=== PATIENT | female | born 1970 | race Hispanic/Latino ===

== ENCOUNTER → 2023-03-16 | Emergency (ER) | payer BC ==
[~2023-03-16] MED LIST: DIPHENHYDRAMINE 50 MG/ML VIAL ONE; KETOROLAC 30 MG/ML INJ ONE; METOCLOPRAMIDE 10 MG/2mL INJ ONE; NA CHLORIDE 0.9% 1,000 ML ONE
[2023-03-16 16:28] LABS: Absolute Lymphocytes (CBC) 1.2 K/uL (0.7-4.9); Hematocrit 42.8 % (36.0-45.0); Lymphocytes % 16.8 % (15.3-44.8); MCV 91.3 fL (80-100); MPV 7.7 fL (7.6-11.3); Platelets 340 thou/uL (152-406); RBC Red Blood Cell Count 4.69 M/uL (3.86-4.86)
[2023-03-16 16:51] LABS: ALT/SGPT 32 U/L (13-56); AST/SGOT 17 U/L (15-37); Albumin 3.8 g/dL (3.4-5.0); Alkaline Phosphatase 103 U/L (45-117); BUN Blood Urea Nitrogen 12 mg/dL (7-18); Bicarbonate 26 mEq/L (21-32); Bilirubin Total 0.4 mg/dL (0.2-1.0); Glomerular Filtration Rate 100 ml/min (=/>90); Glucose Level 108 mg/dL (74-106); Potassium 3.6 mEq/L (3.5-5.1); Protein, Total 7.6 g/dL (6.4-8.2); Sodium Level 138 mEq/L (136-145); Troponin High Sensitivity 3.6 pg/mL (<58.9)
--- NOTE | 2023-03-16 16:52 | RAD REPORT ---
EXAM DESCRIPTION: CT - Head Brain Wo Cont - 03/16/2023 4:30 pm CLINICAL HISTORY: Dizziness;Headache Headache, drowsiness COMPARISON: No comparisons TECHNIQUE: All CT scans are performed using dose optimization technique as appropriate and may inclu de automated exposure control or mA/KV adjustment according to patient size. FINDINGS: No intracranial hemorrhage, hydrocephalus or extra-axial fluid collection.No areas of brai n edema or evidence of midline shift. The paranasal sinuses and mastoids are clear. The calvarium is intact. IMPRESSION: No acute intracranial abnormality.
[2023-03-16 16:54] LABS: Bilirubin Direct < 0.1 mg/dL (0-0.2); Bilirubin Indirect, Calculated ND mg/dL (0.2-0.8)
--- NOTE | 2023-03-16 17:20 | EDPHYS ---
Physician Documentation [facility] Name: Yarelis Keyes Age: 52 yrs Sex: Female : 1970 Arrival Date: 03/16/2023 Time: 15:37 Bed 9 Private MD: ED Physician Jovi Sanchez HPI: 03/16 16:13 This 52 yrs old Female presents to ER via Ambulatory with complaints of sb4 Dizziness, Nausea. 16:13 The patient presents with dizziness, sense of spinning. Onset: The symptoms/episode sb4 began/occurred this morning. Context:. Modifying factors: The symptoms are alleviated by holding head still, the symptoms are aggravated by movement of head, standing up, changing position. Associated signs and symptoms: Pertinent positives: headache, nausea. patient with history of migraines on aimovig monthly with sumatriptan as rescue medication sees dr. khoury. states she woke up this morning feeling dizzy, which is not normal for her. she called dr. khoury who prescribed her meclizine. she states she was able to take a nap but woke up with the same symptoms. she also endorses headache and nausea. states the dizziness is like she is drunk. she has outpatient brain MRI scheduled in 1 week. 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 - Social history:: Smoking status: Patient denies any tobacco usage or history of. ROS: 16:13 Constitutional: Negative for fever, chills, and weight loss, sb4 16:13 Abdomen/GI: Positive for nausea, 16:13 Neuro: Positive for dizziness, headache, 16:13 All other systems are negative, Exam: 16:13 Constitutional: This is a well developed, well nourished patient who is awake, alert, sb4 and in no acute distress. Head/Face: Normocephalic, atraumatic. Eyes: Extra-ocular motions intact. Periorbital areas with no swelling, redness, or edema. ENT: Mucous membranes moist. Cardiovascular: Regular rate and rhythm with a normal S1 and S2. Respiratory: Lungs have equal breath sounds bilaterally, clear to auscultation and percussion. No rales, rhonchi or wheezes noted. No increased work of breathing, no retractions or nasal flaring. Abdomen/GI: Soft, non-tender, no distension. Skin: Warm, dry with normal turgor. Normal color with no rashes, no lesions, and no evidence of cellulitis. MS/ Extremity: Pulses equal, no cyanosis. Neurovascular intact. Full, normal range of motion. Neuro: Awake and alert, GCS 15, oriented to person, place, time, and situation. Motor strength 5/5 in all extremities. Sensory grossly intact. Vital Signs: 15:44 BP 133 / 94; Pulse 83; Resp 16; Temp 98.7(TE); Pulse Ox 100% on R/A; Weight 80.29 kg; hb Height 5 ft. 2 in. ; Pain 6/10; 16:30 BP 119 / 77; Pulse 88; Resp 16; Pulse Ox 99% on R/A; tl4 17:00 BP 116 / 72; Pulse 64; Resp 18; Pulse Ox 99% on R/A; tl4 17:30 BP 114 / 83; Pulse 58; Resp 17; Pulse Ox 100% on R/A; tl4 18:20 BP 102 / 71; Pulse 73; Resp 16; Pulse Ox 100% on R/A; tl4 15:44 Body Mass Index 32.37 (80.29 kg, 157.48 cm) hb 15:44 Pain Scale: Adult hb MDM: 15:45 Patient medically screened. sb4 16:13 Differential diagnosis: cardiac arrhythmia, CVA, idiopathic dizziness, near-syncope, sb4 vertigo, brain mass, complex migraine. 17:19 Data reviewed: vital signs, nurses notes, lab test result(s), EKG, radiologic studies, sb4 and as a result, I will discharge patient. Consideration of Admission/Observation Escalation of care including admission/observation considered. Counseling: I had a detailed discussion with the patient and/or guardian regarding the historical points, exam findings, and any diagnostic results supporting the discharge/admit diagnosis, lab results, radiology results, the need for outpatient follow up, a neurologist, to return to the emergency department if symptoms worsen or persist or if there are any questions or concerns that arise at home. 03/16 15:53 Order name: Basic Metabolic Panel; Complete Time: 16:57 sb4 03/16 15:53 Order name: CBC with Diff; Complete Time: 16:30 sb4 03/16 15:53 Order name: Hepatic Function; Complete Time: 16:57 sb4 03/16 15:53 Order name: Magnesium; Complete Time: 16:57 sb4 03/16 15:53 Order name: Troponin High Sensitivity; Complete Time: 16:57 sb4 03/16 15:53 Order name: CT Head Brain wo Cont; Complete Time: 16:57 sb4 03/16 15:53 Order name: EKG; Complete Time: 15:54 sb4 03/16 15:53 Order name: Cardiac monitoring; Complete Time: 16:22 sb4 03/16 15:53 Order name: EKG - Nurse/Tech; Complete Time: 16:48 sb4 03/16 15:53 Order name: IV Saline Lock; Complete Time: 16:22 sb4 03/16 15:53 Order name: Labs collected and sent; Complete Time: 16:22 sb4 EC:52 Rate is 63 beats/min. Rhythm is regular, Normal Sinus Rhythm. [place] interval is normal at sb4 130 msec. QRS interval is normal at 92 msec. QT interval is normal at 428 msec. No Q waves. T waves are Normal. No ST changes noted. Clinical impression: Normal ECG. Interpreted by me. Reviewed by me. Administered Medications: 16:21 Drug: Ketorolac IVP 30 mg IVP once Route: IVP; Site: right antecubital; tl4 17:47 Follow up: Response: No adverse reaction tl4 16:21 Drug: diphenhydrAMINE IVP 25 mg IVP once Route: IVP; Site: right antecubital; tl4 17:46 Follow up: Response: No adverse reaction tl4 16:21 Drug: metoCLOPramide IVP 10 mg IVP once; over 1 to 2 minutes Route: IVP; Site: right tl4 antecubital; 17:46 Follow up: Response: No adverse reaction; Nausea is decreased tl4 16:22 Drug: NS 0.9% IV 1000 ml IV at 1 bolus Per protocol; 1000 mL bolus Route: IV; Rate: 1 tl4 bolus; Site: right antecubital; 17:47 Follow up: Response: No adverse reaction; IV Status: Completed infusion; IV Intake: tl4 1000ml Disposition Summary: 03/16/23 17:19 Discharge Ordered Notes: Location: Home sb4 Problem: new sb4 Symptoms: have improved sb4 Condition: Stable sb4 Diagnosis - Complex migraine sb4 Followup: sb4 - With: José Miguel Khoury MD - When: 2 - 3 days - Reason: Further diagnostic work-up, Recheck today's complaints, Re-evaluation by your physician Discharge Instructions: - Discharge Summary Sheet sb4 - Migraine Headache, [id number] sb4 - Dizziness, [id number]-[id number] sb4 Forms: - Medication Reconciliation Form sb4 - Thank You Letter sb4 - Antibiotic Education sb4 - Prescription Opioid Use sb4 - Patient Portal Instructions sb4 - Leadership Thank You Letter sb4 - Work release form tl4 Addendum: 03/18/2023 07:12 I was immediately available for consultation during this patient's visit. I did not e c2 personally see the patient or guide the patient's care.. Signatures: Dispatcher [employer] EDAlessandra Jones RN RN Sonya Holguin, PATashaC TERE sb4 Jovi Sanchez MD MD ec2 Ady Low tl4 Corrections: (The following items were deleted from the chart) 03/16 15:51 15:47 Home Meds: Imitrex Oral; hb hb
--- NOTE | 2023-03-16 17:20 | ER ---
Nurse's Notes [facility] Name: Yarelis Keyes Age: 52 yrs Sex: Female : 1970 Arrival Date: 03/16/2023 Time: 15:37 Bed 9 Private MD: Diagnosis: Complex migraine Presentation: 03/16 15:44 Chief complaint: Dizziness, nausea, and headache + photosensitivity upon waking today. hb Dr. Florentino called in dizziness medicine this morning, it helped her take a nap but symptoms remain unchanged. Coronavirus screen: At this time, the client does not indicate any symptoms associated with coronavirus-19. Ebola Screen: No symptoms or risks identified at this time. Initial Sepsis Screen: Does the patient meet any 2 criteria? No. Patient's initial sepsis screen is negative. Does the patient have a suspected source of infection? No. Patient's initial sepsis screen is negative. Risk Assessment: Do you want to hurt yourself or someone else? Patient reports no desire to harm self or others. Onset of symptoms was March 16, 2023. 15:44 Method Of Arrival: Ambulatory 15:44 Acuity: KORTNEY 3 hb Triage Assessment: 16:23 General: Appears uncomfortable, Behavior is calm, cooperative. GI: Reports nausea. 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 - Social history:: Smoking status: Patient denies any tobacco usage or history of. Screenin:23 [facility] ED Fall Risk Assessment (Adult) History of falling in the last 3 months, tl4 including since admission No falls in past 3 months (0 pts) Confusion or Disorientation No (0 pts) Intoxicated or Sedated No (0 pts) Impaired Gait No (0 pts) Mobility Assist Device Used No (0 pt) Altered Elimination No (0 pt) Score/Fall Risk Level 0 - 2 = Low Risk. Abuse screen: Denies threats or abuse. Denies injuries from another. Nutritional screening: No deficits noted. Tuberculosis screening: No symptoms or risk factors identified. Assessment: 16:22 Reassessment: No changes from previously documented assessment. Patient and/or family tl4 updated on plan of care and expected duration. Pain level reassessed. Patient is alert, oriented x 3, equal unlabored respirations, skin warm/dry/pink. Pain: Complains of pain in headache. GI: Abdomen is non-distended. Vital Signs: 15:44 BP 133 / 94; Pulse 83; Resp 16; Temp 98.7(TE); Pulse Ox 100% on R/A; Weight 80.29 kg; hb Height 5 ft. 2 in. ; Pain 6/10; 16:30 BP 119 / 77; Pulse 88; Resp 16; Pulse Ox 99% on R/A; tl4 17:00 BP 116 / 72; Pulse 64; Resp 18; Pulse Ox 99% on R/A; tl4 17:30 BP 114 / 83; Pulse 58; Resp 17; Pulse Ox 100% on R/A; tl4 18:20 BP 102 / 71; Pulse 73; Resp 16; Pulse Ox 100% on R/A; tl4 15:44 Body Mass Index 32.37 (80.29 kg, 157.48 cm) hb 15:44 Pain Scale: Adult hb ED Course: 15:40 Patient arrived in ED. mr 15:45 Sonya Fernandes PA-C is PHCP. sb4 15:45 Jovi Sanchez MD is Attending Physician. sb4 15:47 Triage completed. hb 15:51 Arm band placed on. hb 15:52 Ady Low is Primary Nurse. tl4 16:22 Basic Metabolic Panel Sent. tl4 16:22 CBC with Diff Sent. tl4 16:22 Hepatic Function Sent. tl4 16:22 Magnesium Sent. tl4 16:22 Troponin High Sensitivity Sent. tl4 16:22 No provider procedures requiring assistance completed. Inserted saline lock: 20 gauge tl4 in right antecubital area, using aseptic technique. Blood collected. 16:23 Patient has correct armband on for positive identification. Placed in gown. Bed in low tl4 position. Call light in reach. Side rails up X2. Adult w/ patient. Provided Education on: ED process. 16:32 CT Head Brain wo Cont In Process Unspecified. EDMS 17:19 José Miguel Florentino MD is Referral Physician. sb4 18:20 IV discontinued, intact, bleeding controlled, No redness/swelling at site. Pressure tl4 dressing applied. Administered Medications: 16:21 Drug: Ketorolac IVP 30 mg IVP once Route: IVP; Site: right antecubital; tl4 17:47 Follow up: Response: No adverse reaction tl4 16:21 Drug: diphenhydrAMINE IVP 25 mg IVP once Route: IVP; Site: right antecubital; tl4 17:46 Follow up: Response: No adverse reaction tl4 16:21 Drug: metoCLOPramide IVP 10 mg IVP once; over 1 to 2 minutes Route: IVP; Site: right tl4 antecubital; 17:46 Follow up: Response: No adverse reaction; Nausea is decreased tl4 16:22 Drug: NS 0.9% IV 1000 ml IV at 1 bolus Per protocol; 1000 mL bolus Route: IV; Rate: 1 tl4 bolus; Site: right antecubital; 17:47 Follow up: Response: No adverse reaction; IV Status: Completed infusion; IV Intake: tl4 1000ml Medication: 16:24 VIS not applicable for this client. tl4 Intake: 17:47 IV: 1000ml; Total: 1000ml. tl4 Outcome: 17:19 Discharge ordered by . sb4 18:21 Discharged to home ambulatory, with family, tl4 18:21 Condition: stable 18:21 Discharge instructions given to patient, family, Instructed on discharge instructions, follow up and referral plans. Demonstrated understanding of instructions, follow-up care, 18:21 Patient left the ED. tl4 Signatures: Dispatcher [employer] EDGA RipNoemi, Reg Reg mr De La GarzaAlessandra, RN RN Sonya Holguin, PATashaC PATashaC sb4 [place]ahl, Ady tl4 Corrections: (The following items were deleted from the chart) 15:47 15:44 Chief complaint: Dizziness, nausea, and headache + photosensitivity upon waking hb today. Dr. Florentino called in dizziness medicine this morning, it helped her take a nap but symptoms remain. hb 15:51 15:47 Home Meds: Imitrex Oral; hb hb
[2023-03-16 19:03] VITALS: TEMP 98.7; O2SAT 100
[2023-03-16 19:10] VITALS: BP 102/71
--- NOTE | 2023-03-17 13:21 | EKG ---
Test Date: 2023-03-16 Test Time: 16:45:59 Optical Worker: TL MEASUREMENT RESULTS: Intervals: Rate: 63 AK: 130 QRSD: 92 QT: 428 QTc: 437 [place]: P: 22 AK: 130 QRS: 35 T: 48 INTERPRETIVE STATEMENTS: Normal sinus rhythm Normal ECG No previous ECG available for comparison Electronically Signed On 03-17-23 13:18:47 CHAINSTITCH BINDER by Brayan Keen
== END ==
LOC: ER 15:37
DX: G43.809 Other migraine, not intractable, without status migrainosus (principal)
CPT/HCPCS: 96361; 93005; 85025; 80048; 36415; 83735; 80076; 84484; 70450; 96375; 96374; 99284; J2765; J1200; J7030